=== PATIENT | female | born 1985 ===

== ENCOUNTER → 2024-12-30 00:52 | Outpatient (CLI) | payer BC, SELFPAY ==
--- NOTE | 2024-12-30 | DI.US_ITS ---
Exam(s) US OB ASHLEY WEIGHT EXAM: US OB ASHLEY WEIGHT CLINICAL HISTORY: [facility] [place] 23 WK GESTATION, CK PLACENTA POSITION AND GROWTH Z34.92. TECHNIQUE: Transabdominal obstetrical ultrasound performed. COMPARISON: No exams were available for comparison FINDINGS: Number of fetuses: 1 position: VARIED Placental location: The placenta has both anterior and posterior components and appears to connect on the right side. The placental tip is 2.6 cm from the internal os. The placenta is grade 1. There is no evidence of previa. BIOMETRIC DATA: BPD: 6.34cm, 25weeks 5days HC: 23.64cm, 25weeks 5days AC: 19.87cm, 24weeks 4days FL: 4.66cm, 25weeks 3days EFW: 764.34g, 1lb 10.99oz, 48.7% Composite Age: 25weeks 3days KAREN: 04/11/[birth year]25 Heart Rate: 136bpm Amniotic fluid index: 15.95cm. Visually, amount of fluid is within normal limits. IMPRESSION: 1. Single live intrauterine gestation as above. 2. There is no evidence of previa. The placental tip is 2.6 cm from the internal os. 3. Estimated weight is 764gms. This is the 49th percentile. 4. Amniotic fluid index is 16 cm. The largest pocket measures 4.7 cm. DATA REPOSITORY:
== END ==
PROVIDERS: Visit Provider Student in an Organized Health Care Education/Training Program
DX: Z34.92 Encounter for supervision of normal pregnancy, unspecified, second trimester (principal); Z3A.23 23 weeks gestation of pregnancy
CPT/HCPCS: 76816